=== PATIENT | male | born 1960 | race Caucasian/White ===

== ENCOUNTER 2024-04-23 12:31 | Emergency (ER) | payer OTHER, SELFPAY ==
[2024-04-23 12:32] VITALS: BP 146/100
--- NOTE | 2024-04-23 13:21 | ED.GENMED ---
History of Present Illness
General
Chief Complaint: Back Pain
Source: patient
Exam Limitations: none
Time Seen by Provider: 04/23/24 13:02
History of Present Illness
History of Present Illness:
63 year old male presents with persistent lower back pain ongoing for 10 days. He states he been traveling quite frequently. Pain is in the right mid back does not radiate to the legs. No fever. No associated bowel or bladder dysfunction. No
numbness. He states he had something similar to this several years ago and has ongoing back issues. He tried Aleve this week without relief. No known injury otherwise
Past History
Past History
ED Past Medical History: Other (herniated discs from years ago)
Phy Exam
Physical Exam
Physical Exam:
General: Well-appearing male no acute respiratory distress
HEENT: Normocephalic atraumatic
Exam: Patient is tender over the midportion of the lumbar spine and to the right paraspinous area.
Neurologic: Alert and oriented good sensation bilateral lower extremities. Bilateral patellar reflexes 2+. Good strength to the lower extremities
Extremities: No cyanosis
Course
Orders/Labs/Results
Orders:
Orders
04/23/24 13:20
Ketorolac [Toradol] 15 mg IV NOW STA
diazePAM [Valium Injection] 5 mg IV NOW STA
CR Lumbar Spine 2 Or 3 Views Urgent
Comment:
Reason For Exam: back pain
04/23/24 15:19
HYDROmorphone [Dilaudid] 0.5 mg IV NOW STA
Vital Signs
Initial and Last Documented VS:
Initial Vital Signs
Temp Pulse Resp BP Pulse Ox
98.6 F 93 18 146/100 95
04/23/24 12:32 04/23/24 12:32 04/23/24 12:32 04/23/24 12:32 04/23/24 12:32
Last Documented Vital Signs
Temp Pulse Resp BP Pulse Ox
98.6 F 64 18 165/101 96
04/23/24 12:32 04/23/24 16:00 04/23/24 16:00 04/23/24 16:00 04/23/24 16:00
MDM/Problems Addressed
Differential Diagnosis Includes:
Low back pain. No red flags to suggest cauda equina. No fever to suggest infectious source. Patient describes the hands like sensation in the middle portion of his lower back. X-rays pending. Will manage symptoms with medication.
*Critical Care Note
Total Time (30-74mins, 75-104mins- exclusive of procedures): Not Applicable
Update Note
Update Note:
X-rays show mild degenerative changes throughout the lumbar spine. Patient feeling slightly improved after medicine here. Will send home on muscle relaxer anti-inflammatory and a short course of pain medicine.
ED Attending Note
-
Portions of this chart may have been created with voice recognition software.� Occasional wrong word or��sound alike� substitutions may have occurred due to the inherent limitations of voice recognition software.
Discharge Plan
Departure
Patient Disposition: Home (Routine Discharge)
Date of Disposition: 04/23/24
Time of Disposition: 17:24
Patient with high blood pressure during this ER visit?: No
Discharge Problem:
Low back pain
Instructions: Low Back Pain (DC)
Prescriptions:
New
cyclobenzaprine 10 mg tablet
10 mg PO TID PRN (Reason: spasm) Qty: 10 0RF
hydrocodone-acetaminophen 5-325 mg tablet
1 tab PO Q8H PRN (Reason: Pain) Qty: 10 0RF
prednisone 20 mg tablet
40 mg PO DAILY 5 Days Qty: 10 0RF
No Action
hydrocodone-acetaminophen [Vicodin] 1 EACH tablet
1 ea PO Q4H PRN (Reason: pain)
Patient Comments:
this RX is the patient's 's medication. He took 3 doses only on 07/09/12
naproxen sodium [Aleve] 220 MG capsule
220 mg PO DAILY
hydrocodone-acetaminophen [Vicodin] 1 EACH tablet
1 ea PO Q6HPRN PRN (Reason: pain) Qty: 0 0RF
ibuprofen 600 MG tablet
600 mg PO R TID Qty: 0 0RF
Rx Instructions:
every 8 hrs with food
cyclobenzaprine [Flexeril] 5 MG tablet
10 mg PO R Q8HPRN PRN (Reason: pain) Qty: 10 0RF
Referrals:
Danielle Lancaster MD [Family Provider] -
Activity Restrictions/Additional Instructions:
Take medicine as directed. Use warm compress to the area. Return if worse otherwise follow-up with family doctor
Interventions
Interventions:
*Risk Screen - Suicide Last Done: 04/23/24 12:32
*General Assessment Last Done: 04/23/24 12:32
*Neglect/Abuse Screening Last Done: 04/23/24 12:32
ED- Fall Risk Assessment Last Done: 04/23/24 16:28
*ED COVID-19 Vaccine History Last Done: 04/23/24 12:32
ED-Musculoskeletal Assessment Last Done: 04/23/24 16:28
Discharge Date and Time
Print Language: SINHALA
[2024-04-23] MEDS: TORADOL 15 MG IV (13:31)
[2024-04-23] MEDS: VALIUM INJECTION 5 MG IV (13:31)
[2024-04-23 13:35] VITALS: BMI 32.6
[2024-04-23] MEDS: DILAUDID 0.5 MG IV (15:27)
[2024-04-23 16:00] VITALS: BP 165/101
== END 2024-04-23 17:45 | disposition home or self-care (01) ==
LOC: EMR 12:31
PROVIDERS: EMERGENCY PHYSICIAN Emergency Medicine; FAMILY PHYSICIAN Internal Medicine
DX: M54.50 Low back pain, unspecified (principal)
CPT/HCPCS: 99283; 96374; 96375; 72100